=== PATIENT | male | born 1950 ===

== ENCOUNTER 2021-09-29 11:52 | Emergency (ER) | payer OTHER ==
[~2021-09-29] VITALS: Ht 172.7 cm; Wt 56.2 kg
== END 2021-09-29 18:17 | disposition home or self-care (01) ==
LOC: ER 11:52
DX: R53.1 Weakness (principal); Z91.013 Allergy to seafood; Z20.822 Contact with and (suspected) exposure to COVID-19

== ENCOUNTER 2021-12-29 13:11 | Emergency (ER) | payer OTHER ==
[~2021-12-29] VITALS: Ht 167.6 cm; Wt 60.8 kg
== END 2021-12-29 17:07 | disposition home or self-care (01) ==
LOC: ER 13:11
DX: R07.0 Pain in throat (principal); Z91.013 Allergy to seafood

== ENCOUNTER 2022-09-07 12:23 | Inpatient (IN) | payer OTHER ==
[~2022-09-07] VITALS: Ht 167.6 cm; Wt 61.2 kg
== END 2022-09-16 14:50 | disposition designated cancer center or children's hospital (05) | DRG 579 ==
LOC: ER 12:23 → SEC-K 18:27 → MEDJ 18:27
PROVIDERS: ADMIT Specialist; ATTEND Specialist
PROC: B54DZZZ Ultrasonography of Bilateral Lower Extremity Veins (ICD-10-PCS; 2022-09-07)
PROC: 0JBQ3ZZ Excision of Right Foot Subcutaneous Tissue and Fascia, Percutaneous Approach (ICD-10-PCS; principal; 2022-09-09)
PROC: BB24ZZZ Computerized Tomography (CT Scan) of Bilateral Lungs (ICD-10-PCS; 2022-09-09)
PROC: 02HV33Z Insertion of Infusion Device into Superior Vena Cava, Percutaneous Approach (ICD-10-PCS; 2022-09-09)
PROC: 4A12X4Z Monitoring of Cardiac Electrical Activity, External Approach (ICD-10-PCS; 2022-09-09)
PROC: 0JBR3ZZ Excision of Left Foot Subcutaneous Tissue and Fascia, Percutaneous Approach (ICD-10-PCS; 2022-09-09)
PROC: XW033E5 Introduction of Remdesivir Anti-infective into Peripheral Vein, Percutaneous Approach, New Technology Group 5 (ICD-10-PCS; 2022-09-10)
PROC: 0JBR3ZZ Excision of Left Foot Subcutaneous Tissue and Fascia, Percutaneous Approach (ICD-10-PCS; 2022-09-15)
PROC: 0JBQ3ZZ Excision of Right Foot Subcutaneous Tissue and Fascia, Percutaneous Approach (ICD-10-PCS; 2022-09-15)
DX: L97.528 Non-pressure chronic ulcer of other part of left foot with other specified severity (principal); U07.1 COVID-19; L97.518 Non-pressure chronic ulcer of other part of right foot with other specified severity; L08.89 Other specified local infections of the skin and subcutaneous tissue; B96.5 Pseudomonas (aeruginosa) (mallei) (pseudomallei) as the cause of diseases classified elsewhere; I87.2 Venous insufficiency (chronic) (peripheral); F20.9 Schizophrenia, unspecified; F32.89 Other specified depressive episodes